=== PATIENT | female | born 1935 | race Hispanic/Latino ===

== ENCOUNTER 2017-06-01 04:46 | Inpatient (IN) | payer MEDICARE, OTHER ==
[2017-06-01] MEDS ORDERED: MAGNESIUM SULFATE 2GM/50ML 2 GM/50 ML BAG IV ONE (05:19)
[2017-06-01] MEDS ORDERED: PROVENTIL IH ONE ×2 (05:19→08:17)
[2017-06-01] MEDS ORDERED: ATROVENT IH ONE ×3 (05:19→10:36)
[2017-06-01 05:25] LABS: Basophils % (Auto) 0.5 % (0.0-1.8); Eosinophils % (Auto) 4.7 % (0.0-4.3); Hematocrit 42.2 % (30.3-42.9); Hemoglobin 13.5 gm/dl (10.1-14.3); Mean Corpuscular HGB Conc 32 % (30-34); Mean Corpuscular Hemoglobin 29 pg (28-32); Mean Corpuscular Volume 90 fl (79-97); Platelet Count 203 K/mm3 (140-440); Red Blood Count 4.71 M/mm3 (3.65-5.03); Red Cell Distribution Width 15.8 % (13.2-15.2); White Blood Count 8.8 K/mm3 (4.5-11.0)
[2017-06-01 05:36] LABS: Partial Thromboplastin Time 29.7 Sec. (24.2-36.6)
[2017-06-01 05:49] LABS: Alanine Aminotransferase 13 units/L (7-56); Albumin 3.6 g/dL (3.9-5); Albumin/Globulin Ratio 1.1 %; Alkaline Phosphatase 89 units/L (35-129); Anion Gap 13 mmol/L; Blood Urea Nitrogen 15 mg/dL (7-17); Calcium 9.2 mg/dL (8.4-10.2); Carbon Dioxide 37 mmol/L (22-30); Glucose 108 mg/dL (65-100); Potassium 4.4 mmol/L (3.6-5.0); Sodium 144 mmol/L (137-145); Total Protein 6.9 g/dL (6.3-8.2)
--- NOTE | 2017-06-01 07:54 | XRay Report ---
AP CHEST: HISTORY: Dyspnea No comparison. There is mild cardiomegaly with left ventricular predominance. Pulmonary vascularity is borderline. The lungs are generally clear. No large consolidation, pleural effusion or pneumothorax. Questionable small left pleural effusion. IMPRESSION: Mild cardiomegaly. Questionable small left pleural effusion.
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
[2017-06-01] MEDS ORDERED: ZITHROMAX 500 MG in NACL 0.9% 250ML 250 ML IV ONE (09:00)
[2017-06-01] MEDS ORDERED: BENADRYL ONE (09:56)
[2017-06-01] MEDS ORDERED: BENADRYL IV ONE (10:00)
[2017-06-01] MEDS ORDERED: PROVENTIL IH PRN (10:18)
[2017-06-01] MEDS ORDERED: DULCOLAX PR PRN (10:18)
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
[2017-06-01] MEDS ORDERED: DELTASONE PO ONE (10:23)
--- NOTE | 2017-06-01 11:58 | Admit Criteria Form ---
Admission Criteria Documentation: COPD Clinical Indications for Admission to Inpatient Care ([place] [facility] [place]/ check or initial the applicable condition/criteria) Admission is indicated for ANY ONE of the following (1)(2)(3): [ ]I. Acute exacerbation by high-risk comorbidity(e.g., pneumonia, dysrhythmia, heart failure, pleural effusion, pneumothorax) or severe underlying COPD (eg, baseline FEV1 less than 50% predicted) [X ]II. Inpatient admission required[A] rather than observation care (see Chronic Obstructive Pulmonary Disease: Observation Care) because of ANY ONE of the following: [X ]a) New or pre-existing signs or symptoms of COPD (eg, dyspnea or Tachypnea at rest or with minimal activity) that persist despite outpatient and observation care treatment [ ]b) New-onset hypoxemia (room air SaO2 less than 90%, PO2 less than 60 mm Hg (8.0 kPa)) that persists despite outpatient and observation care treatment [X ]c) Worsening of pre-existing hypoxemia (eg, new or increased requirement for supplemental oxygen to maintain oxygenation at baseline level) that persists despite outpatient and observation care treatment, with oxygen treatment needs performable only in acute inpatient setting [ ]d) Hypercarbia (PCO2 greater than 40 mm Hg (5.3 kPa))-induced respiratory acidosis (pH less than 7.35) that persists despite outpatient and observation care treatment [ ]e) Supplemental oxygen or respiratory treatments for over 24 hours that are performable only in acute inpatient setting [ ]f) Chest tube placement with active evacuation (e.g., suction, drainage) (6) [ ]g) Other condition, treatment or monitoring requiring inpatient admission [ ]III. Planned invasive surgical or diagnostic procedures requiring acute- care hospitalization [ ]IV. Acute respiratory failure (e.g., uncompensated hypercarbia, severe hypoxemia) [ ]V. Severe comorbid condition (e.g., severe steroid myopathy, acute vertebral fracture) that has acutely worsened pulmonary function [ ]. Altered mental status that is severe or persistent Extended stay beyond goal length of stay may be needed for (29)(30)(31)(32)(33) : [ ]a ) Respiratory Failure. [ ]b) Severe or persisting hypoxemia or hypercarbia [ ]c) Severe or persistent dyspnea [ ]d) Clinically significant Comorbidities (e.g. chronic heart failure, atrial fibrillation with rapid response, pneumonia)(36) [ ]e) Malnutrition (33) The original [facility] content created by [facility] has been revised. The portions of the content which have been revised are identified through the use of italic text or in bold, and [facility] has neither reviewed nor approved the modified material. All other unmodified content is copyright [facility]. Please see references footnoted in the original [facility] edition 2017 Admission Criteria Met: Yes
[2017-06-01] MEDS: DUONEB *Not for PRN Use IH SCH ×2 (15:08→20:14)
--- NOTE | 2017-06-01 17:50 | Event Note ---
Date: 06/01/17 Patient seen and examined and agree with HAM FACER's note.
[2017-06-01] MEDS: TYLENOL PO PRN (21:13)
[2017-06-02] MEDS: TYLENOL PO PRN ×2 (02:59→19:37)
[2017-06-02 04:18] LABS: Basophils % (Auto) 0.1 % (0.0-1.8); Eosinophils % (Auto) 0.1 % (0.0-4.3); Hematocrit 38.4 % (30.3-42.9); Hemoglobin 12.4 gm/dl (10.1-14.3); Mean Corpuscular HGB Conc 32 % (30-34); Mean Corpuscular Hemoglobin 29 pg (28-32); Mean Corpuscular Volume 90 fl (79-97); Platelet Count 213 K/mm3 (140-440); Red Blood Count 4.29 M/mm3 (3.65-5.03); Red Cell Distribution Width 15.5 % (13.2-15.2); White Blood Count 9.8 K/mm3 (4.5-11.0)
[2017-06-02 04:28] LABS: Anion Gap 18 mmol/L; BUN/Creatinine Ratio 38.33; Blood Urea Nitrogen 23 mg/dL (7-17); Calcium 9.1 mg/dL (8.4-10.2); Carbon Dioxide 33 mmol/L (22-30); Chloride 98.7 mmol/L (98-107); Glucose 196 mg/dL (65-100); Potassium 4.3 mmol/L (3.6-5.0); Sodium 145 mmol/L (137-145)
[2017-06-02] MEDS: DUONEB *Not for PRN Use IH SCH ×4 (06:08→21:31)
[2017-06-02] MEDS: LASIX PO SCH (06:22)
[2017-06-02] MEDS: SYNTHROID PO SCH (06:23)
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
[2017-06-02] MEDS: PROTONIX PO SCH (09:14)
[2017-06-02] MEDS: DELTASONE PO SCH (09:14)
[2017-06-02] MEDS: MOBIC PO SCH (09:15)
[2017-06-02] MEDS: TOPROL XL PO SCH (09:15)
[2017-06-02] MEDS: LOVENOX SUB-Q SCH (09:16)
[2017-06-02] MEDS ORDERED: NON-FORMULARY (Nebivolol Hcl [Bystolic] 20 MG) PO SCH (10:00)
[2017-06-02 18:22] LABS: Bacteria,Urine 1+ /HPF (Negative); Bilirubin,Urine NEG (Negative); Blood,Urine NEG (Negative); Ketones,Urine NEG (Negative); Leukocyte Esterase,Urine NEG (Negative); Mucus,Urine FEW /HPF; Nitrite,Urine NEG (Negative); Protein,Urine <15 mg/dL mg/dL (Negative); RBC,Urine < 1.0 /HPF (0.0-6.0); Urobilinogen,Urine < 2.0 mg/dL (<2.0); WBC,Urine < 1.0 /HPF (0.0-6.0)
[2017-06-03] MEDS: DUONEB *Not for PRN Use IH SCH ×2 (02:08→09:00)
[2017-06-03] MEDS: LASIX PO SCH (06:04)
[2017-06-03] MEDS: SYNTHROID PO SCH (06:05)
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
[2017-06-03] MEDS: DELTASONE PO SCH (09:09)
[2017-06-03] MEDS: MOBIC PO SCH (09:10)
[2017-06-03] MEDS: PROTONIX PO SCH (09:10)
[2017-06-03] MEDS: LOVENOX SUB-Q SCH (09:11)
[2017-06-03] MEDS: TOPROL XL PO SCH (09:11)
[2017-06-03 09:14] VITALS: BP 138/80
[2017-06-03] MEDS ORDERED: LEVAQUIN 500MG/100ML 500 MG/100 ML BAG IV SCH (10:00)
== END 2017-06-03 12:40 | disposition home health service (06) | DRG 189 ==
LOC: ED 04:46 → CC2 10:18
PROVIDERS: ADMIT Internal Medicine; ATTEND Internal Medicine
PROC: 5A09357 Assistance with Respiratory Ventilation, Less than 24 Consecutive Hours, Continuous Positive Airway Pressure (ICD-10-PCS; principal; 2017-06-01)
DX: J96.01 Acute respiratory failure with hypoxia (principal); J44.1 Chronic obstructive pulmonary disease with (acute) exacerbation; J90 Pleural effusion, not elsewhere classified; I10 Essential (primary) hypertension; E03.9 Hypothyroidism, unspecified; K21.9 Gastro-esophageal reflux disease without esophagitis; Z99.81 Dependence on supplemental oxygen; Z87.440 Personal history of urinary (tract) infections; Z79.899 Other long term (current) drug therapy; Z82.49 Family history of ischemic heart disease and other diseases of the circulatory system
CPT/HCPCS: 36415; 71010; 80048; 80053; 81001; 83735; 84484; 85025; 85610; 85730; 87086; 93005; 93010; 94640; 94760; 96365; 96367; 96375; J0456; J1200; J1650; J1956; J2930; J3475; J7050; J7512

== ENCOUNTER 2020-07-04 13:05 | Emergency (ER) | payer MEDICARE, OTHER ==
--- NOTE | 2020-07-04 13:27 | Emergency Department Report ---
ED Altered Mental Status HPI - General Stated Complaint: AMS Time Seen by Provider: 07/04/20 13:21 - History of Present Illness Initial Comments: 85-year-old female with history of CHF, COPD on 2 L O2, presents the ED with altered mental status. Daughter states was difficult to arouse. Daughter last checked outpatient at around 7 AM and she was fine, wearing her oxygen. When daughter went back into check on her, patient was altered and did not have her nasal cannula on. Patient is normally A&O x3. EMS reports when they arrived at patient's home, patient was not wearing her O2, room air sats were 75%. Patient was placed on nonrebreather and brought to the ED. EMS also reports patient has a low-grade fever en route of 100.6. Patient was apparently discharged from [facility] on yesterday following an episode of GI bleeding. Patient u nderwent colonoscopy. MD Complaint: altered mental status, decreased responsiveness -: This afternoon Severity: moderate Context: COPD Associated Symptoms: fever/chills, shortness of breath. denies: cough, nausea/vomiting - Related Data Home Medications Medication Instructions Recorded Confirmed Last Taken Nebivolol HCl [Bystolic] 20 mg PO DAILY 01/22/14 10/10/17 06/01/17 Pitavastatin Calcium [LiVALO] 4 mg PO HS 01/22/14 10/10/17 05/31/17 Furosemide [Lasix TAB] 20 mg PO DAILY 06/01/17 10/10/17 06/01/17 Levothyroxine [Synthroid] 25 mcg PO DAILY 06/01/17 10/10/17 05/31/17 Meloxicam [Mobic] 7.5 mg PO DAILY 06/01/17 10/10/17 06/01/17 Pantoprazole [Protonix TAB] 40 mg PO DAILY 06/01/17 10/10/17 05/31/17 clonazePAM [KlonoPIN] 0.5 mg PO BID PRN 06/01/17 10/10/17 05/31/17 Fluorometholone Acetate 1 drop OU DAILY 10/10/17 10/10/17 Unknown Previous Rx's Medication Instructions Recorded Last Taken Type Albuterol 0.83 inh IH Q4H #30 10/12/17 Unknown Rx Albuterol Sulfate [Ventolin HFA] 2 puff IH Q4H PRN #30 hfa.aer.ad 10/12/17 Unknown Rx Prednisone [predniSONE 10 mg 10 mg PO .TAPER #1 tab.ds.pk 10/12/17 Unknown Rx (6-Day Pack, 21 Tabs)] Tiotropium [Spiriva] 18 mcg INHALATION DAILY #30 cap 10/12/17 Unknown Rx levoFLOXacin [Levaquin TAB] 500 mg PO QDAY #7 tablet 10/12/17 Unknown Rx Ciprofloxacin HCl [Ciprofloxacin 500 mg PO Q12HR 5 Days #10 tab 07/04/20 Unknown Rx TAB] Allergies Allergy/AdvReac Type Severity Reaction Status Date / Time azithromycin Allergy Hives Verified 10/10/17 04:22 midazolam HCl [From Versed] Allergy Unknown Verified 10/10/17 04:22 ED Review of Systems ROS: Stated complaint: AMS Other details as noted in HPI Comment: All other systems reviewed and negative Constitutional: fever Respiratory: shortness of breath. denies: cough Cardiovascular: denies: chest pain Gastrointestinal: denies: abdominal pain, vomiting, diarrhea ED Past Medical Hx - Past Medical History Hx Hypertension: Yes Hx Heart Attack/AMI: No Hx COPD: Yes Hx HIV: No - Social History Smoking Status: Former Smoker - Medications Home Medications: Home Medications Medication Instructions Recorded Confirmed Last Taken Type Nebivolol HCl [Bystolic] 20 mg PO DAILY 01/22/14 10/10/17 06/01/17 History Pitavastatin Calcium [LiVALO] 4 mg PO HS 01/22/14 10/10/17 05/31/17 History Furosemide [Lasix TAB] 20 mg PO DAILY 06/01/17 10/10/17 06/01/17 History Levothyroxine [Synthroid] 25 mcg PO DAILY 06/01/17 10/10/17 05/31/17 History Meloxicam [Mobic] 7.5 mg PO DAILY 06/01/17 10/10/17 06/01/17 History Pantoprazole [Protonix TAB] 40 mg PO DAILY 06/01/17 10/10/17 05/31/17 History clonazePAM [KlonoPIN] 0.5 mg PO BID PRN 06/01/17 10/10/17 05/31/17 History Fluorometholone Acetate 1 drop OU DAILY 10/10/17 10/10/17 Unknown History Albuterol 0.83 inh IH Q4H #30 10/12/17 Unknown Rx Albuterol Sulfate [Ventolin HFA] 2 puff IH Q4H PRN #30 hfa.aer.ad 10/12/17 Unknown Rx Prednisone [predniSONE 10 mg 10 mg PO .TAPER #1 tab.ds.pk 10/12/17 Unknown Rx (6-Day Pack, 21 Tabs)] Tiotropium [Spiriva] 18 mcg INHALATION DAILY #30 cap 10/12/17 Unknown Rx levoFLOXacin [Levaquin TAB] 500 mg PO QDAY #7 tablet 10/12/17 Unknown Rx Ciprofloxacin HCl [Ciprofloxacin 500 mg PO Q12HR 5 Days #10 tab 07/04/20 Unknown Rx TAB] ED Physical Exam - General General appearance: alert, in no apparent distress - Head Head exam: Present: atraumatic, normocephalic - Eye Eye exam: Present: normal appearance, EOMI - ENT ENT exam: Present: mucous membranes moist - Neck Neck exam: Present: normal inspection - Respiratory Respiratory exam: Present: normal lung sounds bilaterally. Absent: respiratory distress - Cardiovascular Cardiovascular Exam: Present: regular rate, normal rhythm - GI/Abdominal GI/Abdominal exam: Present: soft. Absent: distended, tenderness - Extremities Exam Extremities exam: Present: normal inspection - Neurological Exam Neurological exam: Present: alert, oriented X3, CN II-XII intact, other (mentation is somewhat slow). Absent: motor sensory deficit - Psychiatric Psychiatric exam: Present: normal affect, normal mood - Skin Skin exam: Present: warm, dry, intact, normal color ED Course Vital Signs 07/04/20 07/04/20 07/04/20 13:30 13:45 14:00 Temperature 100.7 F H Pulse Rate 82 82 81 Respiratory 20 25 H 22 Rate Blood Pressure 137/77 153/79 142/71 Blood Pressure 137/77 [Right] O2 Sat by Pulse 96 94 93 Oximetry - Reevaluation(s) Reevaluation #1: 07/04/20 15:12 Patient is currently much more alert. She is oriented x3. ABG appears normal. No evidence of CO2 retention. Patient only complaint is her right knee. She tells me that she has chronic knee pain. States that she gets injections in the knee and it is time for her to get another injection in the joint. Patient had a colonoscopy on yesterday. She denies any abdominal pain currently. - Lab Data Result diagrams: 07/04/20 14:21 07/04/20 14:21 Lab Results 07/04/20 07/04/20 07/04/20 Range/Units 13:39 14:04 14:21 WBC 11.4 H (4.5-11.0) K/mm3 RBC 3.65 (3.65-5.03) M/mm3 Hgb 10.5 (10.1-14.3) gm/dl Hct 32.5 (30.3-42.9) % MCV 89 (79-97) fl MCH 29 (28-32) pg MCHC 32 (30-34) % RDW 15.8 H (13.2-15.2) % Plt Count 230 (140-440) K/mm3 Lymph % (Auto) 16.0 (13.4-35.0) % [place] % (Auto) 6.9 (0.0-7.3) % Eos % (Auto) 0.1 (0.0-4.3) % Baso % (Auto) 0.4 (0.0-1.8) % Lymph # (Auto) 1.8 (1.2-5.4) K/mm3 [place] # (Auto) 0.8 (0.0-0.8) K/mm3 Eos # (Auto) 0.0 (0.0-0.4) K/mm3 Baso # (Auto) 0.1 (0.0-0.1) K/mm3 Seg Neutrophils % 76.6 H (40.0-70.0) % Seg Neutrophils # 8.8 H (1.8-7.7) K/mm3 ABG pH 7.387 (7.350-7.450) pH Units ABG pCO2 54.9 mm Hg ABG pO2 63.5 L (80.0-90.0) mm Hg ABG HCO3 32.3 H (20.0-26.0) mmol/L ABG O2 Saturation 91.4 L (95.0-99.0) % ABG O2 Content 12.8 (0.0-44) ABG Base Excess 6.2 H (-2.0-3.0) mmol/L ABG Hemoglobin 10.1 L (12.0-16.0) gm/dl ABG Carboxyhemoglobin 0.8 (0.0-5.0) % ABG Methemoglobin 0.4 (0.0-1.5) % Oxyhemoglobin 90.3 L (95.0-99.0) % FiO2 32 % Sodium (137-145) mmol/L Potassium (3.6-5.0) mmol/L Chloride (98-107) mmol/L Carbon Dioxide (22-30) mmol/L Anion Gap mmol/L BUN (7-17) mg/dL Creatinine (0.6-1.2) mg/dL Estimated GFR ml/min BUN/Creatinine Ratio % Glucose (65-100) mg/dL Lactic Acid (0.7-2.0) mmol/L Calcium (8.4-10.2) mg/dL Total Bilirubin (0.1-1.2) mg/dL AST (5-40) units/L ALT (7-56) units/L Alkaline Phosphatase (35-129) units/L Troponin T (0.00-0.029) ng/mL Total Protein (6.3-8.2) g/dL Albumin (3.9-5) g/dL Albumin/Globulin Ratio % Urine Color Yellow (Yellow) Urine Turbidity Slightly-cloudy (Clear) Urine pH 5.0 (5.0-7.0) Ur Specific Anabel 1.014 (1.003-1.030) Urine Protein <15 mg/dl (Negative) mg/dL Urine Glucose (UA) Neg (Negative) mg/dL Urine Ketones Neg (Negative) mg/dL Urine Blood Mod (Negative) Urine Nitrite Pos (Negative) Urine Bilirubin Neg (Negative) Urine Urobilinogen < 2.0 (<2.0) mg/dL Ur Leukocyte Esterase Lg (Negative) Urine WBC (Auto) 38.0 H (0.0-6.0) /HPF Urine RBC (Auto) 28.0 (0.0-6.0) /HPF U Epithel Cells (Auto) 4.0 (0-13.0) /HPF Urine Bacteria (Auto) 2+ (Negative) /HPF Urine Mucus Few /HPF 07/04/20 07/04/20 Range/Units 14:21 14:21 WBC (4.5-11.0) K/mm3 RBC (3.65-5.03) M/mm3 Hgb (10.1-14.3) gm/dl Hct (30.3-42.9) % MCV (79-97) fl MCH (28-32) pg MCHC (30-34) % RDW (13.2-15.2) % Plt Count (140-440) K/mm3 Lymph % (Auto) (13.4-35.0) % [place] % (Auto) (0.0-7.3) % Eos % (Auto) (0.0-4.3) % Baso % (Auto) (0.0-1.8) % Lymph # (Auto) (1.2-5.4) K/mm3 [place] # (Auto) (0.0-0.8) K/mm3 Eos # (Auto) (0.0-0.4) K/mm3 Baso # (Auto) (0.0-0.1) K/mm3 Seg Neutrophils % (40.0-70.0) % Seg Neutrophils # (1.8-7.7) K/mm3 ABG pH (7.350-7.450) pH Units ABG pCO2 mm Hg ABG pO2 (80.0-90.0) mm Hg ABG HCO3 (20.0-26.0) mmol/L ABG O2 Saturation (95.0-99.0) % ABG O2 Content (0.0-44) ABG Base Excess (-2.0-3.0) mmol/L ABG Hemoglobin (12.0-16.0) gm/dl ABG Carboxyhemoglobin (0.0-5.0) % ABG Methemoglobin (0.0-1.5) % Oxyhemoglobin (95.0-99.0) % FiO2 % Sodium 145 (137-145) mmol/L Potassium 4.3 (3.6-5.0) mmol/L Chloride 103.1 (98-107) mmol/L Carbon Dioxide 33 H (22-30) mmol/L Anion Gap 13 mmol/L BUN 13 (7-17) mg/dL Creatinine 0.8 (0.6-1.2) mg/dL Estimated GFR > 60 ml/min BUN/Creatinine Ratio 16 % Glucose 144 H (65-100) mg/dL Lactic Acid 0.90 (0.7-2.0) mmol/L Calcium 9.0 (8.4-10.2) mg/dL Total Bilirubin 0.90 (0.1-1.2) mg/dL AST 15 (5-40) units/L ALT 9 (7-56) units/L Alkaline Phosphatase 91 (35-129) units/L Troponin T 0.021 (0.00-0.029) ng/mL Total Protein 6.3 (6.3-8.2) g/dL Albumin 3.7 L (3.9-5) g/dL Albumin/Globulin Ratio 1.4 % Urine Color (Yellow) Urine Turbidity (Clear) Urine pH (5.0-7.0) Ur Specific Anabel (1.003-1.030) Urine Protein (Negative) mg/dL Urine Glucose (UA) (Negative) mg/dL Urine Ketones (Negative) mg/dL Urine Blood (Negative) Urine Nitrite (Negative) Urine Bilirubin (Negative) Urine Urobilinogen (<2.0) mg/dL Ur Leukocyte Esterase (Negative) Urine WBC (Auto) (0.0-6.0) /HPF Urine RBC (Auto) (0.0-6.0) /HPF U Epithel Cells (Auto) (0-13.0) /HPF Urine Bacteria (Auto) (Negative) /HPF Urine Mucus /HPF - EKG Data -: EKG Interpreted by Ok EKG shows normal: sinus rhythm, axis, intervals, QRS complexes, ST-T waves Rate: normal Interpretation: no acute changes - Radiology Data Radiology results: report reviewed, image reviewed - Medical Decision Making 85-year-old female presents the ED with altered mental status. Patient initially with slow mentation, there is report from EMS and family that patient had removed her oxygen patient O2 with sats in the 70s upon EMS arrival. Patient has history of COPD. ABG does not show any CO2 retention. O2 sats are normal 2 L O2. Work-up showed that patient has a UTI with positive nitrites and 2+ bacteria. Lactic acid normal. CT head is negative, chest x-ray is normal. Patient did have colonoscopy on yesterday, however abdomen is benign. Fever and altered mental status likely due to her UTI and hypoxia. Patient's mental status is much improved compared to when she initially arrived. She is able to converse and speak normally, no confusion. She is ANO x3. Levaquin given here in ED. Vital signs are stable. Will discharge with antibiotics. Outpatient follow-up advised. Return precautions given. - Differential Diagnosis Hypercapnia, UTI, pneumonia Critical care attestation.: If time is entered above; I have spent that time in minutes in the direct care of this critically ill patient, excluding procedure time. ED Disposition Clinical Impression: UTI (urinary tract infection) Disposition: DC- TO HOME OR SELFCARE Is pt being admited?: No Condition: Stable Instructions: Urinary Tract Infection in Women (ED) Prescriptions: Ciprofloxacin HCl [Ciprofloxacin TAB] 500 mg PO Q12HR 5 Days #10 tab Referrals: PRIMARY CARE, [Referring] - 3-5 Days Time of Disposition: 15:37
[2020-07-04 13:47] LABS: ABG Base Excess 6.2 mmol/L (-2.0-3.0); ABG HCO3 32.3 mmol/L (20.0-26.0); ABG Methemoglobin 0.4 % (0.0-1.5); ABG Oxygen Saturation 91.4 % (95.0-99.0); ABG PCO2 54.9 mm Hg; ABG PH 7.387 pH Units (7.350-7.450); ABG PO2 63.5 mm Hg (80.0-90.0)
[2020-07-04] MEDS ORDERED: ACETAMINOPHEN 500 MG TAB PO ONE (14:11)
[2020-07-04 14:34] LABS: Bacteria,Urine 2+ /HPF (Negative); Bilirubin,Urine NEG (Negative); Blood,Urine MOD (Negative); Color,Urine Yellow (Yellow); Mucus,Urine FEW /HPF; Protein,Urine <15 mg/dL mg/dL (Negative); Urobilinogen,Urine < 2.0 mg/dL (<2.0)
--- NOTE | 2020-07-04 14:40 | XRay Report ---
CHEST 1 VIEW 07/04/2020 1:34 PM INDICATION / CLINICAL INFORMATION: Altered mental status. COMPARISON: 10/10/2017 FINDINGS: SUPPORT DEVICES: None. HEART / MEDIASTINUM: Stable heart size at the upper limits of normal with atherosclerosis in the thor acic aorta. LUNGS / PLEURA: No significant pulmonary or pleural abnormality. No pneumothorax. ADDITIONAL FINDINGS: No significant additional findings. IMPRESSION: 1. No acute findings. Signer Name: Keo Fulton MD Signed: 07/04/2020 2:35 PM Workstation Name: [id number]
[2020-07-04] MEDS ORDERED: cefTRIAXone/NS 1 GM/50 ML 1 GM/50 ML BAG IV ONE (14:44)
--- NOTE | 2020-07-04 14:58 | Cat Scan Report ---
CT BRAIN: 07/04/2020 INDICATION / CLINICAL INFORMATION: ams. COMPARISON: None available. FINDINGS: BRAIN/INTRACRANIAL STRUCTURES: Unenhanced CT images of the brain demonstrate no evidence of acute int racranial abnormality. Ventricles and sulci are prominent in size, consistent with age-related atroph ic change. Extensive chronic white matter hypoattenuation is present throughout the cerebral hemispheric white m atter. There is no CT evidence of acute ischemic injury, hemorrhage, or mass. There are no abnormal extra-ax ial fluid collections. Atherosclerotic vascular calcifications are present in the distal internal carotid arteries and verte bral arteries. EXTRACRANIAL STRUCTURES: Unremarkable. IMPRESSION: No acute abnormality. Chronic and age-related changes. All CT scans at this location are performed using dose reduction to ALARA by means of automated expos ure control. Signer Name: Joaquin Mcneil MD Signed: 07/04/2020 2:54 PM Workstation Name: [id number]
[2020-07-04 15:11] LABS: Basophils # (Auto) 0.1 K/mm3 (0.0-0.1); Basophils % (Auto) 0.4 % (0.0-1.8); Eosinophils % (Auto) 0.1 % (0.0-4.3); Hematocrit 32.5 % (30.3-42.9); Hemoglobin 10.5 gm/dl (10.1-14.3); Lymphocytes # (Auto) 1.8 K/mm3 (1.2-5.4); Mean Corpuscular HGB Conc 32 % (30-34); Mean Corpuscular Volume 89 fl (79-97); Monocytes # (Auto) 0.8 K/mm3 (0.0-0.8); Monocytes % (Auto) 6.9 % (0.0-7.3); Platelet Count 230 K/mm3 (140-440); Red Blood Count 3.65 M/mm3 (3.65-5.03); Red Cell Distribution Width 15.8 % (13.2-15.2)
[2020-07-04 15:28] LABS: Alanine Aminotransferase 9 units/L (7-56); Albumin 3.7 g/dL (3.9-5); BUN/Creatinine Ratio 16; Blood Urea Nitrogen 13 mg/dL (7-17); Hemolysis Index 25
[2020-07-04 18:16] VITALS: BP 124/65
== END 2020-07-04 18:16 | disposition home or self-care (01) ==
LOC: ED 13:05
DX: N39.0 Urinary tract infection, site not specified (principal); I10 Essential (primary) hypertension; J44.9 Chronic obstructive pulmonary disease, unspecified; Z79.899 Other long term (current) drug therapy; Z88.1 Allergy status to other antibiotic agents; Z88.6 Allergy status to analgesic agent
CPT/HCPCS: 36415; 70450; 71045; 80053; 81001; 82140; 82803; 84484; 85025; 87040; 87076; 87086; 87186; 93005; 96365; 99285; J1956